=== PATIENT | male | born 1935 | race Caucasian/White ===

== ENCOUNTER 2017-11-26 07:25 | Emergency (ER) | payer MEDICARE ==
[~2017-11-26 07:25] MED LIST: AMIO200T2 PO; FURO20TA6 PO; LEVO50TA4 PO; LOSA1TAB37 PO; METO-409 PO; MULT-1275 PO; PRED50TA2 PO; TERA10CA4 PO; WARF-57 PO
[2017-11-26] MEDS ORDERED: BENZONATATE 100 MG CAPSULE PO ONE (07:55)
[2017-11-26] MEDS ORDERED: IPRATROPIUM/ALBUTEROL SULFATE 3 ML SOLUTION IH ONE (08:02)
[2017-11-26 08:46] LABS: BASOPHILS % (AUTO) 0.8 % (0.0-5.0); EOSINOPHILS % (AUTO) 2.1 % (0.0-8.0); HEMATOCRIT 34.9 % (42-54); LYMPHOCYTES % (AUTO) 9.8 % (21.0-51.0); MEAN CORPUSCULAR HEMOGLOBIN 31.8 pg (27.0-33.0); MEAN CORPUSCULAR HGB CONC 33.9 g/dL (32.0-36.0); MEAN CORPUSCULAR VOLUME 93.9 fL (79-99); NEUTROPHILS % (AUTO) 74.3 % (40.0-77.0); PLATELET COUNT (AUTO) 243 K/uL (130-400); RED BLOOD CELL COUNT(AUTO) 3.72 MIL/uL (4.50-6.20); RED CELL DISTRIBUTION WIDTH 14.7 % (11.0-15.5); WHITE BLOOD COUNT (AUTO) 6.5 K/uL (4.8-10.8)
[2017-11-26 09:15] LABS: B-TYPE NATRIURETIC PEPTIDE 446 pg/mL (0-100)
[2017-11-26 09:39] LABS: CREATININE 1.1 mg/dL (0.5-1.5)
[2017-11-26] MEDS ORDERED: FUROSEMIDE 10 MG/ML 4ML VIAL ONE (10:00)
[2017-11-26 10:20] LABS: INR 2.21 (0.85-1.15); PARTIAL THROMBOPLASTIN TIME 45.4 SEC (26.3-35.5); PROTHROMBIN TIME 22.8 SEC (9.6-11.6)
[2018-01-26] MEDS ORDERED: WARF-57 PO (09:27)
[2018-01-26] MEDS ORDERED: CETI-101 PO (09:28)
[2018-01-26] MEDS ORDERED: ATOR20TA65 PO (09:28)
== END 2017-11-26 11:20 | disposition home or self-care (01) ==
LOC: EDH 07:25
DX: I11.0 Hypertensive heart disease with heart failure (principal); I50.41 Acute combined systolic (congestive) and diastolic (congestive) heart failure; R05 Cough; I25.10 Atherosclerotic heart disease of native coronary artery without angina pectoris; Z79.899 Other long term (current) drug therapy; Z95.0 Presence of cardiac pacemaker; Z95.1 Presence of aortocoronary bypass graft
CPT/HCPCS: 36415; 71046; 80048; 83880; 84484; 85025; 85610; 85730; 87804 ×2; 93005; 94640; 96374; 99285; J1940

== ENCOUNTER → 2017-12-06 | Outpatient (CLI) | payer MEDICARE ==
[~2017-12-06] MED LIST changes: -AMIO200T2 PO; +AMIO200T5 PO; +ATOR20TA65 PO; +CETI-101 PO; +CLOP75TA14 PO
== END | disposition home or self-care (01) ==
LOC: RAH 13:38
PROVIDERS: ATTEND Internal Medicine Cardiovascular Disease
DX: J44.9 Chronic obstructive pulmonary disease, unspecified (principal); J90 Pleural effusion, not elsewhere classified; M47.895 Other spondylosis, thoracolumbar region
CPT/HCPCS: 71250

== ENCOUNTER → 2017-12-20 | Outpatient (CLI) | payer MEDICARE | END | disposition home or self-care (01) | LOC: RAH 09:29 | PROVIDERS: ATTEND Internal Medicine | DX: M25.461 Effusion, right knee (principal); M17.11 Unilateral primary osteoarthritis, right knee; I82.409 Acute embolism and thrombosis of unspecified deep veins of unspecified lower extremity; I70.90 Unspecified atherosclerosis; M71.21 Synovial cyst of popliteal space [Baker], right knee | CPT/HCPCS: 73562; 73590; 93971 ==

== ENCOUNTER 2018-01-29 05:46 | Observation (INO) | payer MEDICARE ==
[2018-01-26 08:50] VITALS: BP 150/79
[2018-01-26 09:13] LABS: BASOPHILS % (AUTO) 0.6 % (0.0-5.0); EOSINOPHILS % (AUTO) 1.4 % (0.0-8.0); HEMATOCRIT 38.9 % (42-54); LYMPHOCYTES % (AUTO) 9.6 % (21.0-51.0); MEAN CORPUSCULAR HEMOGLOBIN 29.8 pg (27.0-33.0); MEAN CORPUSCULAR HGB CONC 33.1 g/dL (32.0-36.0); MEAN CORPUSCULAR VOLUME 90.1 fL (79-99); MONOCYTES % (AUTO) 10.6 % (3.0-13.0); NEUTROPHILS % (AUTO) 77.8 % (40.0-77.0); PLATELET COUNT (AUTO) 171 K/uL (130-400); RED BLOOD CELL COUNT(AUTO) 4.32 MIL/uL (4.50-6.20); RED CELL DISTRIBUTION WIDTH 14.1 % (11.0-15.5); WHITE BLOOD COUNT (AUTO) 6.9 K/uL (4.8-10.8)
[2018-01-26 09:14] LABS: APPEARANCE,URINE Clear (CLEAR); BILIRUBIN,URINE Negative (NEGATIVE); COLOR,URINE Yellow (YELLOW); GLUCOSE, URINE (UA) Negative (NEGATIVE); KETONES,URINE Negative (NEGATIVE); LEUKOCYTE ESTERASE ,URINE Negative (NEGATIVE); NITRATE,URINE Negative (NEGATIVE); OCCULT BLOOD,URINE Negative (NEGATIVE); PH,URINE 5.5 (5.0-8.0); PROTEIN,URINE Negative (NEGATIVE)
[2018-01-26 09:24] LABS: INR 2.49 (0.85-1.15); PARTIAL THROMBOPLASTIN TIME 41.1 SEC (26.3-35.5); PROTHROMBIN TIME 25.7 SEC (9.6-11.6)
[2018-01-26 09:43] LABS: CREATININE 1.1 mg/dL (0.5-1.5); POTASSIUM 4.4 mmol/L (3.5-5.1)
[~2018-01-29] VITALS: Ht 175.3 cm; Wt 84.2 kg
[2018-01-29] VITALS (25 sets, daily range): BP systolic 133–161; BP diastolic 67–88
[~2018-01-29 05:46] MED LIST changes: -CLOP75TA14 PO; -FURO20TA6 PO; -LOSA1TAB37 PO; -PRED50TA2 PO
[2018-01-29 07:37] LABS: INR 1.27 (0.85-1.15); PARTIAL THROMBOPLASTIN TIME 31.5 SEC (26.3-35.5); PROTHROMBIN TIME 13.3 SEC (9.6-11.6)
[2018-01-29] MEDS ORDERED: SODIUM CHLORIDE 0.9% 1000ML 1,000 ML IV SCH (09:30)
[2018-01-29] MEDS ORDERED: SODIUM BICARB 50MEQ 50ML VIAL ONE (11:49)
[2018-01-29] MEDS ORDERED: NITROGLYCERIN 5 MG/ML 10 ML VIAL IV ONE (11:49)
[2018-01-29] MEDS ORDERED: HEPARIN SODIUM 1000UNIT/ML 10ML VIAL ONE (11:49)
[2018-01-29] MEDS ORDERED: LIDOCAINE HCL 2% 20ML ONE (11:50)
[2018-01-29] MEDS ORDERED: ISOVUE-300 100 ML VIAL IV ONE (11:50)
[2018-01-29] MEDS ORDERED: CLOP75TA14 PO (13:59)
[2018-01-29] MEDS ORDERED: ONDANSETRON HCL 4 MG/2 ML VIAL IVP PRN (14:00)
[2018-01-29] MEDS ORDERED: CLOPIDOGREL BISULFATE 300 MG TAB ONE (14:07)
[2018-01-29] MEDS: ACETAMINOPHEN-CODEINE 300/30MG TAB PO PRN ×2 (14:49→20:46)
[2018-01-30] VITALS: BP 128/72
[2018-01-30] MEDS ORDERED: WARFARIN SODIUM 5 MG TAB ONE (03:50)
[2018-01-30 04:00] VITALS: BP 127/70
[2018-01-30 08:00] VITALS: BP 132/73
== END 2018-01-30 08:59 | disposition home or self-care (01) ==
LOC: DAH 05:46 → DAHIP 05:47 → DAH 05:47 → 3BH 18:31
PROVIDERS: ADMIT Internal Medicine Cardiovascular Disease; ATTEND Internal Medicine Cardiovascular Disease
DX: I70.211 Atherosclerosis of native arteries of extremities with intermittent claudication, right leg (principal); I25.10 Atherosclerotic heart disease of native coronary artery without angina pectoris; I48.92 Unspecified atrial flutter; I70.8 Atherosclerosis of other arteries; Z95.1 Presence of aortocoronary bypass graft; Z95.5 Presence of coronary angioplasty implant and graft; Z79.899 Other long term (current) drug therapy
CPT/HCPCS: 36415 ×2; 37226; 37230; 71045; 75710; 80048; 81003; 85025; 85347; 85610 ×2; 85730 ×4; 93005; A4606; C1725 ×4; C1769 ×2; C1874 ×3; C1887; C1894; G0378 ×27; J1644; J3490 ×3; Q9967

== ENCOUNTER → 2018-02-19 | Outpatient (CLI) | payer MEDICARE ==
[~2018-02-19] MED LIST changes: +CLOP75TA14 PO
== END | disposition home or self-care (01) ==
LOC: RAH 10:09
PROVIDERS: ATTEND Internal Medicine
DX: I70.0 Atherosclerosis of aorta (principal); R07.9 Chest pain, unspecified; Z95.0 Presence of cardiac pacemaker
CPT/HCPCS: 71046

== ENCOUNTER 2018-11-12 06:40 | Emergency (ER) | payer MEDICARE ==
[2018-11-12] MEDS ORDERED: ONDANSETRON HCL 4 MG/2 ML VIAL ONE (07:08)
[2018-11-12] MEDS ORDERED: MORPHINE SULFATE 4 MG/1ML SYG ONE (07:08)
[2018-11-12 08:09] LABS: BASOPHILS % (AUTO) 1.2 % (0.0-5.0); EOSINOPHILS % (AUTO) 1.6 % (0.0-8.0); HEMATOCRIT 36.6 % (42-54); LYMPHOCYTES % (AUTO) 11.4 % (21.0-51.0); MEAN CORPUSCULAR HEMOGLOBIN 32.3 pg (27.0-33.0); MEAN CORPUSCULAR HGB CONC 33.5 g/dL (32.0-36.0); MEAN CORPUSCULAR VOLUME 96.3 fL (79-99); MONOCYTES % (AUTO) 9.6 % (3.0-13.0); NEUTROPHILS % (AUTO) 76.2 % (40.0-77.0); NUCLEATED RED BLOOD CELLS 0.1 % (0.0-0.19); PLATELET COUNT (AUTO) 170 K/uL (130-400); RED CELL DISTRIBUTION WIDTH 14.6 % (11.0-15.5); WHITE BLOOD COUNT (AUTO) 5.8 K/uL (4.8-10.8)
[2018-11-12] MEDS ORDERED: ETOMIDATE 2 MG/ML 10 ML VIAL ONE (08:10)
[2018-11-12 08:23] LABS: CREATININE 1.1 mg/dL (0.5-1.5); POTASSIUM 4.3 mmol/L (3.5-5.1)
== END 2018-11-12 10:12 | disposition home or self-care (01) ==
LOC: EDH 06:40
DX: S43.005A Unspecified dislocation of left shoulder joint, initial encounter (principal); I10 Essential (primary) hypertension; I25.810 Atherosclerosis of coronary artery bypass graft(s) without angina pectoris; Z95.1 Presence of aortocoronary bypass graft; Z95.0 Presence of cardiac pacemaker; X58.XXXA Exposure to other specified factors, initial encounter; Y93.89 Activity, other specified; Y92.098 Other place in other non-institutional residence as the place of occurrence of the external cause; Y99.8 Other external cause status
CPT/HCPCS: 23650; 36415; 73020 ×2; 80048; 85025; 93005; 96374; 96375; 99152; 99153; 99285; J2270; J2405; J3490

== ENCOUNTER → 2018-12-21 | Outpatient (CLI) | payer MEDICARE | END | disposition home or self-care (01) | LOC: SHCH 09:49 | PROVIDERS: ATTEND Internal Medicine Cardiovascular Disease | DX: I65.23 Occlusion and stenosis of bilateral carotid arteries (principal) | CPT/HCPCS: 93880 ==

== ENCOUNTER → 2019-03-29 | Outpatient (CLI) | payer MEDICARE | END | disposition home or self-care (01) | LOC: SHCH 08:16 | PROVIDERS: ATTEND Internal Medicine Cardiovascular Disease | DX: I08.0 Rheumatic disorders of both mitral and aortic valves (principal); I73.9 Peripheral vascular disease, unspecified; I25.10 Atherosclerotic heart disease of native coronary artery without angina pectoris | CPT/HCPCS: 93306; 93925 ==

== ENCOUNTER → 2019-04-05 | Outpatient (CLI) | payer MEDICARE ==
[~2019-04-05] VITALS: Ht 177.8 cm; Wt 79.8 kg
[~2019-04-05] MED LIST changes: +REGADENOSON 0.4 MG/5 ML PF SYG IVP SCH
== END | disposition home or self-care (01) ==
LOC: SHCH 08:37
PROVIDERS: ATTEND Internal Medicine Cardiovascular Disease
DX: I51.7 Cardiomegaly (principal); I25.10 Atherosclerotic heart disease of native coronary artery without angina pectoris; Z95.0 Presence of cardiac pacemaker
CPT/HCPCS: 78452; 93017; 96374; A9500 ×2; J2785